=== PATIENT | male | born 1990 | race Two or more races ===

== ENCOUNTER 2018-11-12 15:50 | Emergency (ER) | payer OTHER | END 2018-11-12 17:44 | disposition home or self-care (01) | LOC: JER 15:50 ==

== ENCOUNTER 2020-11-06 18:30 | Emergency (ER) | payer OTHER ==
[2020-11-06 18:35] VITALS: BP 120/69; PULSE 83; TEMP 98.5; BMI 28.3
[2020-11-06] MEDS ORDERED: ALBUTEROL SO4 2.5/IPRATROPIUM 0.5 INH SOL 3 ML VIAL.NEB. NEB ONE ×2 (19:05→19:40)
[2020-11-07 14:07] LABS: SARS-CoV-2 NAA Not Detected (Not Detected)
== END 2020-11-06 20:00 | disposition home or self-care (01) ==
LOC: JER 18:30
PROC: 3E0F7GC Introduction of Other Therapeutic Substance into Respiratory Tract, Via Natural or Artificial Opening (ICD-10-PCS; principal; 2020-11-06)
DX: R05 Cough (principal); J06.9 Acute upper respiratory infection, unspecified; Z11.52 Encounter for screening for COVID-19
CPT/HCPCS: 71045-TC-FY; 99284-25; C9803; U0003; U0005